=== PATIENT | female | born 1990 | race Caucasian/White ===

== ENCOUNTER 2017-11-17 07:12 | Emergency (ER) ==
[2017-11-17 07:19] VITALS: BP 118/74; TEMP 99.7; BMI 20.4
--- NOTE | 2017-11-17 07:48 | ED.PDOC ---
General ED Provider: Dr. MARGO SARAVIA Chief Complaint: Sore Throat Stated Complaint: Onset This past . Low grade fever not >99deg. Has productive cough with green sputum production and associated chills, jaw pain and sore throat. Time Seen by Physician: 07:30 Mode of Arrival: Walk-In Information Source: Patient Exam Limitations: No limitations Primary Care Provider: SHEKHAR YBARRA Nursing and Triage Documentation Reviewed and Agree: Yes Reviewed sepsis parameters & appropriate labs ordered?: Yes System Inflammatory Response Syndrome: Not Applicable Sepsis Protocol: For patient's 13 years and over: Temp is 96.8 and below OR 101 and greater Pulse >90 BPM Resp >20/minute Acutely Altered Mental Status Are patient's symptoms suggestive of a new infection, such as: -Pneumonia -Skin, Soft Tissue -Endocarditis -UTI -Bone, Joint Infection -Implantable Device -Acute Abdominal Infection -Wound Infection -Meningitis -Blood Stream Catheter Infection -Unknown System Inflammatory Response Syndrome: Not Applicable Respiratory Complaint Exam - Respiratory Complaint/Exam Symptoms Are: Still present Timing: Constant Initial Severity: Mild Current Severity: Moderate Location: Throat Character: Reports: Productive cough. Denies: Non-productive cough, Dry cough, Bronchospastic cough Aggravating: Reports: None Alleviating: Reports: None Associated Signs and Symptoms: Reports: Fever, Chills, Sore throat. Denies: Rapid breathing, Dyspnea, Chest pain, Hoarseness, Decreased oral intake Related History: Reports: Similar episode (Tonsillitis) History of Healthcare-Acquired Pneumonia: No Related Surgical History: Reports: None Pulmonary Embolism Risk Factors: None Cardiac Risk Factors: Reports: None Pseudomonas Risk Factors: Reports: None Tuberculosis Risk Factors: Reports: None Recent Stress Test: No Recent Echo/LV Function: No Current Antibiotic Use: No Current Asthma Medication Use: No Respiratory Distress: None Inadequate Respiratory Effort: No Dysphagia Present: No Stridor Present: No Diminished Breath Sounds: No Sinus Tenderness: None Differential Diagnoses: Other (Strep Pharyngitis/Tonsillitis) Review of Systems - Review Of Systems Constitutional: Reports: No symptoms, Chills Eyes: Reports: No symptoms Ears, Nose, Mouth, Throat: Reports: Throat pain Respiratory: Reports: No symptoms Cardiac: Reports: No symptoms GI: Reports: No symptoms : Reports: No symptoms Musculoskeletal: Reports: No symptoms Skin: Reports: No symptoms Neurological: Reports: No symptoms Endocrine: Reports: No symptoms Hematologic/Lymphatic: Reports: No symptoms All Other Systems: Reviewed and Negative Past Medical History - Past Medical History Endocrine: Reports: None Cardiovascular: Reports: Unknown Respiratory: Reports: Unknown Hematological: Reports: Unknown Gastrointestinal: Reports: Unknown Genitourinary: Reports: Unknown Neuro/Psych: Reports: Unknown Musculoskeletal: Reports: Unknown Cancer: Reports: Unknown Last Menstrual Period: 2012 - Surgical History General Surgical History: Reports: Unknown - Family History Family History: Reports: Unknown - Social History Smoking Status: Never smoker Hx Substance Use: No Alcohol Screening: None - Immunizations Tetanus Shot up to Date: Yes Physical Exam - Physical Exam Appearance: Well-appearing, Thin Ill-appearing: Mild Pain Distress: None Eyes: HEAVENLY, EOMI, Conjunctiva clear ENT: Ears normal, Nose normal, Oropharynx normal, Erythema Neck: Supple Respiratory: Airway patent, Breath sounds clear, Breath sounds equal Cardiovascular: RRR, Pulses normal, No rub, No murmur GI/: Soft, Nontender, No masses, Bowel sounds normal, No Organomegaly Musculoskeletal: Normal strength, ROM intact Skin: Warm, Dry, Normal color Neurological: Sensation intact Critical Care Note - Critical Care Note Total Time (mins): 0 Course - Course Orders, Labs, Meds: Lab Review 11/17/17 07:35 Influ A Molecular Assay Negative by naat Influ B Molecular Assay Positive by naat H Orders Category Date Time Status FLU A & B MOLECULAR [FLU A/B MOLECULAR] Stat LAB 11/17/17 07:35 Completed RAPID STREP SCREEN [MOLECULAR GROUP A STREP] Stat LAB 11/17/17 07:35 Completed Vital Signs: Temp Pulse Resp BP Pulse Ox 11/17/17 07:12 99.7 F H 98 H 16 118/74 98 Departure - Departure Time of Disposition: 08:40 Disposition: HOME SELF-CARE Discharge Problem: Influenza B, Sore throat symptom Instructions: Influenza (ED), Pharyngitis (ED) Condition: Good Pt referred to PMD for follow-up: Yes (5DAYS) IPMP verified?: No (n/i) Additional Instructions: PATIENT INFLUENZA INSTRUCTIONS The Flu is contagious for one week, and you can infect other people with the flu one day before your symptoms develop, according to the Center for Disease Control and Prevention (CDC). Kids can stay contagious for even longer. To be safe, students, educators and employed adults should stay away from school and work for 24 hours after a fever has subsided, the CDC suggests. Another rule of thumb: You are technically contagious for as long as you have symptoms. From Coughing, Flu germs can spread to others when left to linger on door handles, printer buttons, or other shared tools and furniture. The CDC recommends that workers who have a fever and respiratory symptoms stay at home until 24 hours after their fever ends (100 degrees Fahrenheit [37.8 degrees Celsius] or lower), without the use of medication. Not everyone who has the flu will have a fever. Other symptoms could include a runny nose, body aches , headache, tiredness, diarrhea, or vomiting. Follow up with your primary care physician or midlevel provider if you fail to improve or return to ER if condition worsens (uncontrolled nausea, vomiting, temperature elevation not responding to antipyretics-Tylenol/ibuprofen. Hand Hygiene Wash hands after blowing your nose, coughing, sneezing, or coming into contact with mucus or contaminated objects and surfaces. Apply soap and water: rub soapy hands together for at least 20 seconds, rinse hands with water, and dry completely. Alcohol-based hand rubs: If soap and water are not available, use of an alcohol- based hand rub is a helpful interim measure until hand washing is possible. When using an alcohol-based hand rub, apply liquid to palm of hand, cover all surfaces of the hands with the liquid, and rub hands together until dry. Cough Etiquette Cover coughs and sneezes with a tissue, or cough and sneeze into your upper sleeve(s). Dispose of used tissues in "no-touch" wastebaskets. Allergies/Adverse Reactions: Allergies Penicillins Adverse Reaction (Verified 11/17/17 07:21) Home Medications: Ambulatory Orders Medroxyprogesterone Acetate [Depo-Provera] 150 mg IM UNKNOWN 03/24/14 Calcium Carbonate [Calcium] 500 mg PO DAILY 06/23/14 Multivitamin [Multi Vitamin Daily] 1 tab PO DAILY 06/23/14 Oseltamivir Phosphate [Tamiflu] 75 mg PO Q12HR #10 capsule 11/17/17 Ranitidine HCl [Zantac] 150 mg PO ONCE 11/17/17 Disposition Discussed With: Patient
== END 2017-11-17 09:10 | disposition home or self-care (01) ==
LOC: ED 07:12
DX: J10.1 Influenza due to other identified influenza virus with other respiratory manifestations (principal); J02.9 Acute pharyngitis, unspecified
CPT/HCPCS: 87502; 87651; 99283